=== PATIENT | male | born 2000 | race Caucasian/White ===

== ENCOUNTER 2024-09-15 09:35 | Emergency (ER) | payer OTHER ==
[~2024-09-15] VITALS: Ht 177.8 cm; Wt 74.8 kg
[2024-09-15 10:14] VITALS: BP 138/85; TEMP 98.1
[2024-09-15] MEDS ORDERED: TRAM50TA2 PO (11:53)
[2024-09-15] MEDS ORDERED: AMOX-430 PO (11:53)
[2024-09-15 12:07] VITALS: O2SAT 99
== END 2024-09-15 12:08 | disposition home or self-care (01) ==
LOC: ER 09:52
DX: K02.9 Dental caries, unspecified (principal); K04.7 Periapical abscess without sinus